=== PATIENT | female | born 1945 | race Caucasian/White ===

== ENCOUNTER 2018-01-30 14:30 | Observation (INO) ==
[2018-01-30 15:30] LABS: Baso % (Auto) 0.5 % (0.0-2.0); Eos % (Auto) 0.4 % (0.0-4.0); Hematocrit 35.9 % (35.0-46.0); Hemoglobin 12.1 gm/dL (11.6-15.3); Lymph # (Auto) 1.8 th/mm3 (1.0-4.8); Lymph % (Auto) 26.6 % (9.0-44.0); Mean Corpuscular HGB Conc 33.8 % (32.0-36.0); Mean Corpuscular Volume 88.8 fL (80.0-100.0); Mean Platelet Volume 8.4 fL (7.0-11.0); Mono # (Auto) 0.6 th/mm3 (0.0-0.9); Mono % (Auto) 8.4 % (0.0-8.0); Neut # (Auto) 4.2 th/mm3 (1.8-7.7); Neut % (Auto) 64.1 % (16.0-70.0); Platelet Count 269 th/mm3 (150-450); Red Blood Count 4.04 mil/mm3 (4.00-5.30); Red Cell Distribution Width 13.8 % (11.6-17.2); White Blood Count 6.6 th/mm3 (4.0-11.0)
[2018-01-30 15:46] LABS: Activated Partial Thrombo Time 27.3 sec (24.3-30.1); Alanine Aminotransferase 20 U/L (10-53); Albumin 3.3 g/dL (3.4-5.0); Anion Gap 7 meq/L (5-15); Aspartate Aminotransferase 17 U/L (15-37); Blood Urea Nitrogen 17 mg/dL (7-18); Calcium 8.3 mg/dL (8.5-10.1); Carbon Dioxide 26.4 meq/L (21.0-32.0); Chloride 109 meq/L (98-107); Glomerular Filtration Rate 62 mL/min (>89); Glucose,Random 90 mg/dL (74-106); Potassium 4.1 meq/L (3.5-5.1); Prothrombin Time 10.5 sec (9.8-11.6); Sodium 142 meq/L (136-145)
[2018-01-30 15:49] LABS: Alkaline Phosphatase 80 U/L (45-117); Total Protein 6.4 g/dL (6.4-8.2)
--- NOTE | 2018-01-30 15:52 | XR ---
EXAM DATE: 01/30/2018 3:24 PM EDT AGE/SEX: 72 years / Female INDICATIONS: [place] having left chest pain, right neck and ear pain. CLINICAL DATA: This is the patient's initial encounter. Patient reports that signs and symptoms have been present for 1 day and indicates a pain score of 4/10. MEDICAL/SURGICAL HISTORY: None. None. COMPARISON: No prior exams available for comparison. FINDINGS: A single AP view of the chest demonstrates the lungs to be symmetrically aerated without evidence of mass, infiltrate or effusion. The cardiomediastinal contours are unremarkable. Osseous structures a re intact. CONCLUSION: Negative examination. Electronically signed by: Audi Hernandez MD 01/30/2018 3:51 PM EDT
[2018-01-30 16:50] VITALS: O2SAT 98
--- NOTE | 2018-01-30 16:50 | CT ---
EXAM DATE: 01/30/2018 4:42 PM EDT AGE/SEX: 72 years / Female INDICATIONS: Chest pain today CLINICAL DATA: This is the patient's initial encounter. Patient reports that signs and symptoms have been present for 1 day and indicates a pain score of 10/10. MEDICAL/SURGICAL HISTORY: Gastroesophageal reflux disease. Appendectomy. Cholecystectomy. RADIATION DOSE: 10.27 CTDI (mGy) COMPARISON: No prior exams available for comparison. TECHNIQUE: Volumetric scanning was performed using a multi-row detector CT scanner during bolus infu tamia of 75ML ml Omnipaque 350 (iohexol) nonionic water-soluble contrast as a single exam dose. The d nataly was post processed with a variety of visualization algorithms including full volume maximum inten sity projection and sliding thin slab reformation. Using automated exposure control and adjustment o f the mA and/or kV according to patient size, radiation dose was kept as low as reasonably achievable to obtain optimal diagnostic quality images. DICOM format image data is available electronically fo r review and comparison. FINDINGS: Pulmonary Arteries: No filling defects are seen in the pulmonary arteries out to the subsegmental ve ssels. The left and right pulmonary arteries are normal in diameter. Lung: Clear. Effusion: None. Mediastinum: No evidence of mediastinal or hilar adenopathy. Other: The axilla is unremarkable. Cholecystectomy clips. Small hiatal hernia. CONCLUSION: No evidence of pulmonary embolus. Electronically signed by: Audi Hernandez MD 01/30/2018 4:49 PM EDT
--- NOTE | 2018-01-30 17:30 | ED ---
HPI General Chief complaint: Chest Pain Stated complaint: Chest pain Time Seen by Provider: 01/30/18 14:43 Source: patient Mode of arrival: EMS Limitations: no limitations History of Present Illness HPI narrative: Patient is a 72 year old female who comes in complaining of chest pain. She was at [facility] with her grandsons when she suddenly felt pain to the middle of her chest, radiating up her jaw. She says it felt a like a pressure to her chest and she felt shortness of breath along with this pain. She says it lasts for about 25 minutes, and then started to ease up. She says she still has some discomfort in her chest, but it is improved from what she experienced a little bit earlier. She denies nausea or vomiting. She denies any cough or cold symptoms. She denies any leg swelling or leg pain. Severity is mild to moderate. Related Data Home Medications Medication Instructions Recorded Confirmed esomeprazole magnesium [Nexium] 20 mg PO DAILY 01/30/18 01/30/18 Allergies Allergy/AdvReac Type Severity Reaction Status Date / Time Penicillins Allergy Intermediate Hives Verified 01/30/18 14:39 Review of Systems Except as stated in HPI: all other systems reviewed are negative Constitutional Denies chills and Denies fever(s) Eyes Denies blurry vision ENT Denies dizziness Cardiovascular Reports chest pain and Reports dyspnea Respiratory Denies cough Gastrointestinal Denies nausea and Denies vomiting Musculoskeletal Denies myalgias and Denies arthralgias Integumentary/Breasts Denies change in pigmentation and Denies lesions Neurologic Denies dizziness and Denies headache(s) [facility] Medical History Medical History GERD (gastroesophageal reflux disease) (Acute) Surgical History Surgical History Hx of appendectomy (Acute) Hx of cholecystectomy (Acute) Social History Social History Substance History: No History of Abuse Second Hand Smoke Exposure: No Smoking Status: Never smoker How Often Do You Have a Drink Containing Alcohol: 2 to 4 times a month Recent Travel in [facility] within the Last 8 Weeks: No Recent Out of Country Travel within the Last 8 Weeks: No Immunization History Tetanus Immunization: >5 Years Hx Influenza Vaccine This Season: Yes Exam Narrative Exam Narrative: GENERAL: Awake and alert, in no acute distress. SKIN: Focused skin assessment warm/dry. No wounds or signs of infection. HEAD: Atraumatic. Normocephalic. EYES: Pupils equal and round. No scleral icterus. ENT: Mucous membranes pink and moist. NECK: Trachea midline. No JVD. CARDIOVASCULAR: Regular rate and rhythm. No murmur appreciated. RESPIRATORY: No accessory muscle use. Clear to auscultation. Breath sounds equal bilaterally. GASTROINTESTINAL: Abdomen soft, non-tender, nondistended. MUSCULOSKELETAL: No obvious deformities. No clubbing. No cyanosis. No edema. NEUROLOGICAL: Awake and alert. No obvious cranial nerve deficits. Motor grossly within normal limits. Normal speech. PSYCHIATRIC: Appropriate mood and affect; insight and judgment normal. Course Initial Documented Vital Signs Temperature 98 F 01/30/18 14:40 Pulse Rate 69 01/30/18 14:40 Respiratory Rate 16 01/30/18 14:40 Blood Pressure 147/80 H 01/30/18 14:40 Pulse Oximetry 98 01/30/18 14:40 Last Documented Vital Signs Temperature 97.9 F 01/30/18 16:49 Pulse Rate 75 01/30/18 16:49 Respiratory Rate 16 01/30/18 16:49 Blood Pressure 161/88 H 01/30/18 16:49 Pulse Oximetry 98 01/30/18 15:10 Medical Decision Making [facility] Narrative Medical decision making narrative: Patient is a 72-year-old female who comes in complaining of chest pain. Exam shows no acute abnormalities. IV established, labs sent. Patient connected to the monitoring manager. Labs show no acute abnormalities. CTA of the chest performed shows no evidence of PE. Patient given aspirin and nitro. She is resting comfortably. She will be placed in chest pain center for further management. Differential Diagnosis Differential Diagnosis: ACS versus NSTEMI versus STEMI Lab Data Lab results reviewed: Yes I reviewed the patient's lab results. Result diagrams: 01/30/18 15:00 01/30/18 15:00 Lab Results 01/30/18 01/30/18 01/30/18 Range/Units 15:00 15:00 15:00 WBC 6.6 (4.0-11.0) th/mm3 RBC 4.04 (4.00-5.30) mil/mm3 Hgb 12.1 (11.6-15.3) gm/dL Hct 35.9 (35.0-46.0) % MCV 88.8 (80.0-100.0) fL MCH 30.0 (27.0-34.0) pg MCHC 33.8 (32.0-36.0) % RDW 13.8 (11.6-17.2) % Plt Count 269 (150-450) th/mm3 MPV 8.4 (7.0-11.0) fL Neut % (Auto) 64.1 (16.0-70.0) % Lymph % (Auto) 26.6 (9.0-44.0) % [place] % (Auto) 8.4 H (0.0-8.0) % Eos % (Auto) 0.4 (0.0-4.0) % Baso % (Auto) 0.5 (0.0-2.0) % Neut # (Auto) 4.2 (1.8-7.7) th/mm3 Lymph # (Auto) 1.8 (1.0-4.8) th/mm3 [place] # (Auto) 0.6 (0.0-0.9) th/mm3 Eos # (Auto) 0.0 (0.0-0.4) th/mm3 Baso # (Auto) 0.0 (0.0-0.2) th/mm3 WBC Differential . Differential Comment Auto diff final PT 10.5 (9.8-11.6) sec INR 1.0 Ratio APTT 27.3 (24.3-30.1) sec Sodium (136-145) meq/L Potassium (3.5-5.1) meq/L Chloride (98-107) meq/L Carbon Dioxide (21.0-32.0) meq/L Anion Gap (5-15) meq/L BUN (7-18) mg/dL Creatinine (0.50-1.00) mg/dL Estimated GFR (>89) mL/min Random Glucose (74-106) mg/dL Calcium (8.5-10.1) mg/dL Total Bilirubin (0.2-1.0) mg/dL AST (15-37) U/L ALT (10-53) U/L Alkaline Phosphatase (45-117) U/L Troponin I Less than 0.02 L (0.02-0.05) ng/mL Total Protein (6.4-8.2) g/dL Albumin (3.4-5.0) g/dL 01/30/18 Range/Units 15:00 WBC (4.0-11.0) th/mm3 RBC (4.00-5.30) mil/mm3 Hgb (11.6-15.3) gm/dL Hct (35.0-46.0) % MCV (80.0-100.0) fL MCH (27.0-34.0) pg MCHC (32.0-36.0) % RDW (11.6-17.2) % Plt Count (150-450) th/mm3 MPV (7.0-11.0) fL Neut % (Auto) (16.0-70.0) % Lymph % (Auto) (9.0-44.0) % [place] % (Auto) (0.0-8.0) % Eos % (Auto) (0.0-4.0) % Baso % (Auto) (0.0-2.0) % Neut # (Auto) (1.8-7.7) th/mm3 Lymph # (Auto) (1.0-4.8) th/mm3 [place] # (Auto) (0.0-0.9) th/mm3 Eos # (Auto) (0.0-0.4) th/mm3 Baso # (Auto) (0.0-0.2) th/mm3 WBC Differential Differential Comment PT (9.8-11.6) sec INR Ratio APTT (24.3-30.1) sec Sodium 142 (136-145) meq/L Potassium 4.1 (3.5-5.1) meq/L Chloride 109 H (98-107) meq/L Carbon Dioxide 26.4 (21.0-32.0) meq/L Anion Gap 7 (5-15) meq/L BUN 17 (7-18) mg/dL Creatinine 0.90 (0.50-1.00) mg/dL Estimated GFR 62 L (>89) mL/min Random Glucose 90 (74-106) mg/dL Calcium 8.3 L (8.5-10.1) mg/dL Total Bilirubin 0.4 (0.2-1.0) mg/dL AST 17 (15-37) U/L ALT 20 (10-53) U/L Alkaline Phosphatase 80 (45-117) U/L Troponin I (0.02-0.05) ng/mL Total Protein 6.4 (6.4-8.2) g/dL Albumin 3.3 L (3.4-5.0) g/dL Imaging Data Radiologist's impression: Chest CTA 01/30/18 14:54 CONCLUSION: No evidence of pulmonary embolus. Chest X-Ray 01/30/18 14:54 CONCLUSION: Negative examination. ECG Data EKG Prior to Arrival: Yes Attestation: I personally reviewed and interpreted this ECG as follows: Interpretation: ECG shows normal sinus rhythm, no ST elevation or depression, normal intervals Discharge Plan Discharge Disposition Patient Disposition: 30 Still Patient Discharge Condition Condition: Stable Discharge Details Diagnosis: Chest pain Physicians Team ED Provider: Ghislaine Blanc Primary Care Provider: UNKNOWN, Attending Provider: Mega Robins Discharge Interventions Interventions: Vital Signs Last Done: 01/30/18 16:49 Status ED Status: Admitted Observation Patient
[2018-01-30 18:42] LABS: Creatine Kinase 72 U/L (26-192)
[2018-01-31] MEDS ORDERED: Acetaminophen 500 MG Tablet PO PRN (07:35)
--- NOTE | 2018-01-31 12:03 | ECG ---
Date Performed: 01/30/2018 Time Performed: 18:09:09 PTAGE: 72 years EKG: Sinus rhythm MODERATE VOLTAGE CRITERIA FOR LVH, CONSIDER NORMAL VARIANT BORDERLINE ECG PREVIOUS TRACING : 01/30/2018 14.44 Since previous tracing, no significant change noted DOCTOR: Mega Robins Interpretating Date/Time 01/31/2018 12:02:19
--- NOTE | 2018-01-31 12:11 | ECG ---
Date Performed: 01/30/2018 Time Performed: 14:44:27 PTAGE: 72 years EKG: Sinus rhythm LOW QRS VOLTAGE IN PRECORDIAL LEADS VOLTAGE CRITERIA FOR LVH ABNORMAL ECG NO PREVIOUS TRACING DOCTOR: Mega Robins Interpretating Date/Time 02/03/2018 08:51:49
[2018-02-01] MEDS ORDERED: Aspirin 325 MG Tablet PO SCH (09:00)
--- NOTE | 2018-02-03 09:12 | ECG ---
Date Performed: 01/30/2018 Time Performed: 21:32:37 PTAGE: 72 years EKG: Sinus rhythm LOW QRS VOLTAGE IN PRECORDIAL LEADS MODERATE VOLTAGE CRITERIA FOR LVH, CONSIDER NORMAL VARIANT GINGERDE RLINE ECG PREVIOUS TRACING : 01/30/2018 18.09 Since previous tracing, no significant change noted DOCTOR: Mega Robins Interpretating Date/Time 02/03/2018 09:11:47
[2018-02-03 18:13] VITALS: BP 122/69; PULSE 59; RESP 18; TEMP 97.8
== END 2018-01-31 10:30 | disposition left against medical advice (07) ==
LOC: NEPFCDU 14:30 → NEPE 14:30 → NEDA 14:30 → NEPFCDU 18:30